=== PATIENT | female | born 1985 | race Caucasian/White ===

== ENCOUNTER → 2017-12-07 09:32 | Outpatient (CLI) | payer OTHER, MEDICAID, SELFPAY ==
[2017-12-07 13:00] LABS: Free T4, Direct Thyroxine 1.25 ng/dL (0.78-2.19)
[2017-12-07 13:14] LABS: Thyroid Stimulating Hormone < 0.02 uIU/mL (0.47-4.68)
[2017-12-08 15:38] LABS: Thyroglobulin Level 0.1 ng/mL (2.8-40.9); Thyroid Antibodies 1 IU/mL (< 2)
== END ==
PROVIDERS: Family Provider Family Medicine; PCP Family Medicine; Visit Provider Nurse Practitioner
DX: E89.0 Postprocedural hypothyroidism (principal); C73 Malignant neoplasm of thyroid gland
CPT/HCPCS: 84432; 84439; 84443

== ENCOUNTER 2018-01-16 13:45 | Outpatient (RCR) | payer OTHER, MEDICAID, SELFPAY ==
--- NOTE | 2017-10-27 16:18 | PT.OTN ---
Current Diagnoses Chronic pain syndrome (10/27/17) Pain in left shoulder (10/27/17) Pain in right hip (10/27/17) Pain in left hip (10/27/17) Pain in right knee (10/27/17) Radiculopathy, cervical region (10/27/17) Cervicalgia (10/27/17) Dorsalgia, unspecified (10/27/17) Physical Therapy Treatment Note PT-OP-A Visit Information Start: 10/27/17 09:34 Freq: Status: Active Protocol: Document 10/27/17 16:10 SAK (Rec: 10/27/17 16:17 [facility] [id number]) Out-Patient Physical Therapy Visit Information Visit Information Visit Type Treatment Note Visit Start Time 15:15 Visit Stop Time 16:15 Total Visit Minutes 60 Visit Number 16 Number of ERP CONSULTANT Visits 0 Evaluation Information Evaluation Date 06/30/17 PT-OP-C Subjective Start: 10/27/17 09:34 Freq: Status: Active Protocol: Document 10/27/17 15:17 SAK (Rec: 10/27/17 15:19 [facility] [id number]) OP-PT Subjective Patient Comments Patient Comments Been able to walk, feeling some better. Headaches not as bad. PT-OP-Q Treatments Start: 10/27/17 09:34 Freq: Status: Active Protocol: Document 10/27/17 15:19 SAK (Rec: 10/27/17 16:07 [facility] [id number]) Cardio Equipment Recumbent Stepper (Sci-Fit) Duration (Minutes) 10 Resistance 1 Seat Position 7 Therapeutic Exercises Supine Exercises 8 Supine Exercise Name bridge Reps/Minutes 5x 7 Supine Exercise Name LTR Reps/Minutes 10x 6 Supine Exercise Name Hamstring stretch Reps/Minutes 2 5 Supine Exercise Name glut set Reps/Minutes 10x 4 Supine Exercise Name full body stretch, lateral trunk stretch 3 Supine Exercise Name hip flex stretch Reps/Minutes 3 min 2 Supine Exercise Name Hip ad with ball squeeze Reps/Minutes 10x 1 Supine Exercise Name stabilization march Reps/Minutes 10x Standing Exercises 2 Standing Exercise Name sidestepping Reps/Minutes 2 min 1 Standing Exercise Name Theraband ex: rows, sh ext Side bilateral Equipment Used L2 TB Reps/Minutes 10 reps ea Manual Therapy Treatment Soft Tissue Mobilization 1 Body Location paraspinals cervical and thoracic Mobilization Type Strumming Body Position Prone Self-Care/Home Management Treatment Education Other Education Importance of HEP for self- care PT-OP-T Assessment and Plan Start: 10/27/17 09:34 Freq: Status: Active Protocol: Document 10/27/17 16:10 THOMAS (Rec: 10/27/17 16:17 [facility] [id number]) Physical Therapy Assessment Assessment Summary Assessment Patient activity level has increased some recently, but patient reports has not lost weight. Poor compliance to HEP due to c/o too busy caring for infant daughter and has not started online education. Has had CT for cervical spine approved, waiting for scheduling for CT and appointment with neurosurgeon. Indicates understanding of need for HEP consistency for self-care, symptom management, but poor follow-through. Physical Therapy Plan Frequency and Duration Frequency of Treatment 1x/Week Duration of Treatment 6 wks Plan of Care Start Date 10/04/17 Plan of Care End Date 11/14/17 Next Visit Focus/Plan Next Visit Plan Progress strengthening, postural and body mechanics, core stabilization as tolerated.
--- NOTE | 2018-01-16 14:30 | PT.OTN ---
Current Diagnoses Chronic pain syndrome (01/16/18) Pain in left shoulder (01/16/18) Pain in right hip (01/16/18) Pain in left hip (01/16/18) Pain in right knee (01/16/18) Radiculopathy, cervical region (01/16/18) Cervicalgia (01/16/18) Dorsalgia, unspecified (01/16/18) Physical Therapy Treatment Note PT-OP-A Visit Information Start: 10/27/17 09:34 Freq: Status: Active Protocol: Document 10/27/17 16:10 SAK (Rec: 10/27/17 16:17 [facility] [id number]) Out-Patient Physical Therapy Visit Information Visit Information Visit Type Treatment Note Visit Start Time 15:15 Visit Stop Time 16:15 Total Visit Minutes 60 Visit Number 16 Number of PROOF TECHNICIAN HELPER Visits 0 Evaluation Information Evaluation Date 06/30/17 PT-OP-C Subjective Start: 10/27/17 09:34 Freq: Status: Active Protocol: Document 10/27/17 15:17 SAK (Rec: 10/27/17 15:19 [facility] [id number]) OP-PT Subjective Patient Comments Patient Comments Been able to walk, feeling some better. Headaches not as bad. PT-OP-Q Treatments Start: 10/27/17 09:34 Freq: Status: Active Protocol: Document 10/27/17 15:19 [facility] (Rec: 10/27/17 16:07 [facility] [id number]) Cardio Equipment Recumbent Stepper (Sci-Fit) Duration (Minutes) 10 Resistance 1 Seat Position 7 Therapeutic Exercises Supine Exercises 8 Supine Exercise Name bridge Reps/Minutes 5x 7 Supine Exercise Name LTR Reps/Minutes 10x 6 Supine Exercise Name Hamstring stretch Reps/Minutes 2 5 Supine Exercise Name glut set Reps/Minutes 10x 4 Supine Exercise Name full body stretch, lateral trunk stretch 3 Supine Exercise Name hip flex stretch Reps/Minutes 3 min 2 Supine Exercise Name Hip ad with ball squeeze Reps/Minutes 10x 1 Supine Exercise Name stabilization march Reps/Minutes 10x Standing Exercises 2 Standing Exercise Name sidestepping Reps/Minutes 2 min 1 Standing Exercise Name Theraband ex: rows, sh ext Side bilateral Equipment Used L2 TB Reps/Minutes 10 reps ea Manual Therapy Treatment Soft Tissue Mobilization 1 Body Location paraspinals cervical and thoracic Mobilization Type Strumming Body Position Prone Self-Care/Home Management Treatment Education Other Education Importance of HEP for self- care PT-OP-S Aquatic Treatment Start: 10/27/17 09:34 Freq: Status: Active Protocol: Document 01/16/18 14:30 TMS (Rec: 01/16/18 16:47 TMS [id number]) Aquatics Treatment Pool Entry/Exit Pool Entry/Exit Method Stairs Assistance Standby Assistance Water Walking Sideways Water Level Chest Level Forwards Water Level Chest Level Lower Extremity Exercises 4 Details Hip AB Body Position Standing Water Level Chest Level Reps/Duration x 10 3 Details Hip flex/ext Body Position Standing Water Level Chest Level Reps/Duration x 10 2 Details Squats Body Position Standing Water Level Chest Level Reps/Duration x 10 1 Details Leoncio/toe raises Body Position Standing Water Level Chest Level Reps/Duration x 10 Upper Extremity Exercises 2 Details Shoulder horiz AB/AD Body Position Standing Water Level Neck Level 1 Details Shoulder circles Body Position Standing Water Level Neck Level [place] Activities [place] Activities Bicycle Cross Country Equipment Belt Duration 15 minutes Comments Cross country without arm movements. PT-OP-T Assessment and Plan Start: 10/27/17 09:34 Freq: Status: Active Protocol: Document 10/27/17 16:10 SAK (Rec: 10/27/17 16:17 SAK [id number]) Physical Therapy Assessment Assessment Summary Assessment Patient activity level has increased some recently, but patient reports has not lost weight. Poor compliance to HEP due to c/o too busy caring for daughter and has not started online education. Has had CT for cervical spine approved, waiting for scheduling for CT and appointment with neurosurgeon. Indicates understanding of need for HEP consistency for self-care, symptom management, but poor follow-through. Physical Therapy Plan Frequency and Duration Frequency of Treatment 1x/Week Duration of Treatment 6 wks Plan of Care Start Date 10/04/17 Plan of Care End Date 11/14/17 Next Visit Focus/Plan Next Visit Plan Progress strengthening, postural and body mechanics, core stabilization as tolerated.
--- NOTE | 2018-01-17 14:45 | PT.OTRE ---
Current Diagnoses Chronic pain syndrome (01/16/18) Pain in left shoulder (01/16/18) Pain in right hip (01/16/18) Pain in left hip (01/16/18) Pain in right knee (01/16/18) Radiculopathy, cervical region (01/16/18) Cervicalgia (01/16/18) Dorsalgia, unspecified (01/16/18) Provider Visit Care Team Role Provider Type Dane Marley MD Attending Provider Physician Family Provider Primary Care Provider Specialty: Family Practice Address: [address] [place] [address], [facility] Email: Physical Therapy Re-Evaluation PT-OP-A Visit Information Start: 10/27/17 09:34 Freq: Status: Active Protocol: Document 10/27/17 16:10 [facility] (Rec: 10/27/17 16:17 SAK [id number]) Out-Patient Physical Therapy Visit Information Visit Information Visit Type Treatment Note Visit Start Time 15:15 Visit Stop Time 16:15 Total Visit Minutes 60 Visit Number 16 Number of GRAIN ELEVATOR MAN Visits 0 Evaluation Information Evaluation Date 06/30/17 PT-OP-C Subjective Start: 10/27/17 09:34 Freq: Status: Active Protocol: Document 01/16/18 14:30 SAK (Rec: 01/17/18 14:45 SAK [id number]) OP-PT Subjective Patient Comments Patient Comments Patient reports pain is very variable, increasing with increasing activity. States increased pain today after playing on the bed with her 13 month old. Poor compliance to HEP due to schedule; taking care of daughter and has started back to school. Increased pain since last seen in PT 10/27/17 due to her schedule, aquatic PT schedule with therapist illness and vacation. Patient Questionnaires Neck Disability Index NDI Score 60 Neck Disability Index Impairment 60 to 79% Impaired (Score 30- 39) Oswestry Low Back Index Oswestry Score 50 Oswestry Impairment 40 to 59% Impaired (Score 40- 59) Quick Dash- Upper Extremity Quick Dash UE Score 39 Quick Dash UE Impairment 60 to 79% Impaired (Score 60- 79) OP-PT Pain Assessment Pain Assessment Grid Paper Pain Assessment Grid Completed Yes Comments Pain Comments Patient c/o pain bilateral cervical spine with radiation up into left side of head, thoracic pain [place], lumbar pain [place]. PT-OP-Q Treatments Start: 10/27/17 09:34 Freq: Status: Active Protocol: Document 10/27/17 15:19 [facility] (Rec: 10/27/17 16:07 [facility] [id number]) Cardio Equipment Recumbent Stepper (Sci-Fit) Duration (Minutes) 10 Resistance 1 Seat Position 7 Therapeutic Exercises Supine Exercises 8 Supine Exercise Name bridge Reps/Minutes 5x 7 Supine Exercise Name LTR Reps/Minutes 10x 6 Supine Exercise Name Hamstring stretch Reps/Minutes 2 5 Supine Exercise Name glut set Reps/Minutes 10x 4 Supine Exercise Name full body stretch, lateral trunk stretch 3 Supine Exercise Name hip flex stretch Reps/Minutes 3 min 2 Supine Exercise Name Hip ad with ball squeeze Reps/Minutes 10x 1 Supine Exercise Name stabilization march Reps/Minutes 10x Standing Exercises 2 Standing Exercise Name sidestepping Reps/Minutes 2 min 1 Standing Exercise Name Theraband ex: rows, sh ext Side bilateral Equipment Used L2 TB Reps/Minutes 10 reps ea Manual Therapy Treatment Soft Tissue Mobilization 1 Body Location paraspinals cervical and thoracic Mobilization Type Strumming Body Position Prone Self-Care/Home Management Treatment Education Other Education Importance of HEP for self- care PT-OP-T Assessment and Plan Start: 10/27/17 09:34 Freq: Status: Active Protocol: Document 01/16/18 14:30 [facility] (Rec: 01/17/18 14:45 [facility] [id number]) Physical Therapy Assessment Goals Four Impairment Activity tolerance; unable to tolerate usual activities without inc pain Production Clerks Supervisor Goal (LTG) Patient to decrease her pain and improve her strength and body mechanics to allow her to perform self-care, household tasks, and care of her daughter with minimal increase in pain LTG Duration 3 months Three Impairment Oswestery disability index score 50% Production Clerks Supervisor Goal (LTG) Decrease score to no greater than 30% LTG Duration 3 months Two Impairment Quickdash UE dysfunction score 63% Production Clerks Supervisor Goal (LTG) Decrease score to no greater than 40% LTG Duration 3 months One Impairment neck disability index score 60 % Production Clerks Supervisor Goal (LTG) Decrease score to no greater than 40% LTG Duration 3 months Assessment Summary Assessment Since last seen in PT patient' s Oswestery score has remained the same but her neck and UE disability scores have worsened. Reports CT was negative for any new injury. Will be seeing a head automatic sawyer soon for alternative pain treatments including prolotherapy. Would benefit from PT if able to attend consistently and able to perform HEP consistently. Physical Therapy Plan Frequency and Duration Frequency of Treatment 2x/wk Duration of Treatment 3 months Plan of Care Start Date 01/16/18 Plan of Care End Date 04/18/18 Therapeutic Interventions Therapeutic Interventions Aquatic Therapy Home Exercise Program Manual Therapy Self-Care/Home Management Therapeutic Activities Therapeutic Exercises Modalities Cold Pack/Ice Massage Electric Stimulation Hot Packs Ultrasound Next Visit Focus/Plan Next Note Type Treatment Note Next Visit Plan Progression of aquatic therapy as tolerated for pain management, strengthening, core stabilization, emphasis on posture and body mechanics with all activities.
--- NOTE | 2018-03-24 09:43 | PT.OPDS ---
Current Diagnoses Chronic pain syndrome (01/16/18) Pain in left shoulder (01/16/18) Pain in right hip (01/16/18) Pain in left hip (01/16/18) Pain in right knee (01/16/18) Radiculopathy, cervical region (01/16/18) Cervicalgia (01/16/18) Dorsalgia, unspecified (01/16/18) Provider Visit Care Team Role Provider Type Dane Marley MD Attending Provider Physician Family Provider Primary Care Provider Specialty: Family Practice Address: [address] [place] [address], [facility] Email: Visit Number Visit Number 16 Discharge Summary PT-OP-C Subjective Start: 10/27/17 09:34 Freq: Status: Active Protocol: Document 01/16/18 14:30 SAK (Rec: 01/17/18 14:45 SAK [id number]) OP-PT Subjective Patient Comments Patient Comments Patient reports pain is very variable, increasing with increasing activity. States increased pain today after playing on the bed with her 13 month old. Poor compliance to HEP due to schedule; taking care of daughter and has started back to school. Increased pain since last seen in PT 10/27/17 due to her schedule, aquatic PT schedule with therapist illness and vacation. Patient Questionnaires Neck Disability Index NDI Score 60 Neck Disability Index Impairment 60 to 79% Impaired (Score 30- 39) Oswestry Low Back Index Oswestry Score 50 Oswestry Impairment 40 to 59% Impaired (Score 40- 59) Quick Dash- Upper Extremity Quick Dash UE Score 39 Quick Dash UE Impairment 60 to 79% Impaired (Score 60- 79) OP-PT Pain Assessment Pain Assessment Grid Paper Pain Assessment Grid Completed Yes Comments Pain Comments Patient c/o pain bilateral cervical spine with radiation up into left side of head, thoracic pain [place], lumbar pain [place]. PT-OP-T Assessment and Plan Start: 10/27/17 09:34 Freq: Status: Active Protocol: Document 03/24/18 09:42 SAK (Rec: 03/24/18 09:43 SAK [id number]) Physical Therapy Plan Discharge Physical Therapy Discharge Reasons No Longer Attending PT Discharge Comments Patient has not been seen for PT in 2 months, has started school and is unable to attend PT consistently at this time. Will be discharged. Please see last PT note which was a re-evaluation for discharge status.
== END 2018-03-30 15:23 ==
LOC: PHYS 13:45
PROVIDERS: Family Provider Family Medicine; PCP Family Medicine; Visit Provider Family Medicine
DX: M54.9 Dorsalgia, unspecified (principal); M25.551 Pain in right hip; M25.552 Pain in left hip; M25.561 Pain in right knee; M54.2 Cervicalgia; M54.12 Radiculopathy, cervical region; M25.512 Pain in left shoulder; G89.4 Chronic pain syndrome
CPT/HCPCS: 97010; 97110; 97113; 97140

== ENCOUNTER 2022-01-31 17:05 | Emergency (ER) | payer OTHER, MEDICAID, SELFPAY ==
[2022-01-31 17:15] VITALS: BP 121/68; PULSE 83; RESP 20; TEMP 36.6; O2SAT 96; BMI 27.0
[2022-01-31] MEDS: BACITRACIN OINT 0.9 GM PCKT 2 APPLIC TOP (18:26)
--- NOTE | 2022-01-31 18:34 | ED_ITS ---
HPI - Wound/Laceration <Kana Mendez PA-C - Last Filed: 01/31/22 18:44> General Chief Complaint: Wound/Laceration Stated Complaint: cut index finger left hand Time Seen by Provider: 01/31/22 17:34 Source: patient Mode of arrival: Family Vehicle History of Present Illness HPI narrative: Patient is a 36-year-old female who presents to the emergency room today with complaint of laceration to the left index finger. His patient states this occurred while she was she was cutting a plastic for ice skates for her daughter. States his current on her tetanus vaccination status denies any other concerns and time. Related Data Home Medications Medication Instructions Recorded Confirmed levothyroxine 112 mcg tablet 112 mcg PO QAM #0 tabs 02/16/16 (Synthroid) Previous Rx's Medication Instructions Recorded valacyclovir 1 gram tablet 1,000 mg PO TID #21 tabs 02/16/16 Allergies Allergy/AdvReac Type Severity Reaction Status Date / Time codeine [CODEINE] Allergy Mild HYPOTENTION Verified 01/31/22 17:18 Review of Systems <Kana Mendez PA-C - Last Filed: 01/31/22 18:44> Review of Systems Narrative: R.O.S.: General: No fever, chills or fatigue. Cardiovascular: No chest pain or palpitations Respiratory: No S.O.B. HEENT: No congestion, ear pain, rhinorrhea, sore throat or tinnitus Gastrointestinal: No nausea or vomiting Skin: Cut to left index finger. Neurological: Awake, alert and in not apparent distress. No Headaches, changes in vision or other related neurological concerns. Patient History <Kana Mendez PA-C - Last Filed: 01/31/22 18:44> Social History Smoking Status: Never smoker Smoking Status: Never smoker alcohol intake frequency: 0-2 drinks per day Substance Use Type: does not use Exam <Kana Mendez PA-C - Last Filed: 01/31/22 18:44> Narrative Exam Narrative: Physical Exam: ? General: normal appearance, well developed, well nourished, alert, and awake. Not in acute distress. ? Head: Normocephalic, no lesions. Chest: Lungs CTAB, no rales, rhonchi or wheezes. ?? Heart: RRR, no murmurs, rubs or gallops. Eyes: PERRLA, EOM's full, conjunctivae clear. ? Neuro: Physiological, no localizing findings, CN3-12 intact. ?? Extremities: Warm, well perfused, FROM, no deformities, no edema. ?? Skin: Patient left index finger has a 0.5 cm linear laceration at the dorsal D IP area. The laceration is superficial and does not involve tendon. Patient has good range of motion of left hand and index finger and also has intact sensation to touch with good capillary refill. PSYCHIATRIC: The mood is good, no blunted affect. Speech is clear. Thought pr ocess is linear, thought content is appropriate. The voice is without significant inflection. Initial Vital Signs Initial Vital Signs: Vital Signs Temperature 97.8 F 01/31/22 17:15 Pulse Rate 83 01/31/22 17:15 Respiratory Rate 20 01/31/22 17:15 Blood Pressure 121/68 01/31/22 17:15 Pulse Oximetry 96 01/31/22 17:15 Oxygen Delivery Method 01/31/22 17:15 <Mayra Mcdonough DO - Last Filed: 02/01/22 08:17> Initial Vital Signs Initial Vital Signs: Vital Signs Temperature 97.8 F 01/31/22 17:15 Pulse Rate 83 01/31/22 17:15 Respiratory Rate 20 01/31/22 17:15 Blood Pressure 121/68 01/31/22 17:15 Pulse Oximetry 96 01/31/22 17:15 Oxygen Delivery Method 01/31/22 17:15 Procedures <Kana Mendez PA-C - Last Filed: 01/31/22 18:44> Laceration Repair Laceration 1: Site: hand Size (cm): 0.5 Description: linear Depth: simple, single layer Skin layer closed with: steri-strips (#2 used ) Course <Kana Mendez PA-C - Last Filed: 01/31/22 18:44> Orders Ordered: Discontinued Medications Bacitracin (Bacitracin Oint 0.9 Gm Pckt) 2 applic TOP NOW ONE Stop: 01/31/22 18:12 Last Admin: 01/31/22 18:26 Dose: 2 applic Documented By: RB Neomycin/Polymyxin/Bacitracin (Neomycin/Polymyxin/Bacitra Ud Oint) 2 each TOP NOW ONE Stop: 01/31/22 18:10 Last Admin: 01/31/22 18:50 Dose: 2 each Documented By: EB Vital Signs Vital signs: Vital Signs - 8 hr 01/31/22 17:15 Temperature 97.8 F Pulse Rate 83 Respiratory Rate 20 Blood Pressure 121/68 Pulse Oximetry 96 Oxygen Delivery Method Room Air <Mayra Mcdonough DO - Last Filed: 02/01/22 08:17> Orders Ordered: Discontinued Medications Bacitracin (Bacitracin Oint 0.9 Gm Pckt) 2 applic TOP NOW ONE Stop: 01/31/22 18:12 Last Admin: 01/31/22 18:26 Dose: 2 applic Documented By: RB Neomycin/Polymyxin/Bacitracin (Neomycin/Polymyxin/Bacitra Ud Oint) 2 each TOP NOW ONE Stop: 01/31/22 18:10 Last Admin: 01/31/22 18:50 Dose: 2 each Documented By: EB Vital Signs Vital signs: Vital Signs - 8 hr 01/31/22 17:15 Temperature 97.8 F Pulse Rate 83 Respiratory Rate 20 Blood Pressure 121/68 Pulse Oximetry 96 Oxygen Delivery Method Room Air MDM - Wound/Laceration <Kana Mendez PA-C - Last Filed: 01/31/22 18:44> MDM Narrative Medical decision making narrative: Patient is a 36-year-old female whose mother's room today with complaint of laceration to the left index finger. Physical exam revealed a 0.5 cm laceration to the distal phalangeal joint of the left dorsal hand. This provider used a finger splint and applied 2 Steri-Strips to secure a closed area. Dressing was applied with bacitracin antibiotic ointment. Patient was also instructed on car e and given supplies to change the dressing at a later date. Provider also discussed infection related concerns and advised patient to return to the emergency room should any emergent concerns arise. The patient agrees with plan Discharge Plan Departure Patient Disposition: Home Clinical Impression: Finger laceration Instructions: DI for Laceration Repair -- Finger Activity Restrictions/Additional Instructions: *You have been diagnosed with [finger laceration.] Suggest you apply the anti biotic ointment and change dressings as needed. I also suggest to the area dry and clean from any activity which would involve bending the finger. Please return to the emergency room should any emergent concerns arise. *What to do: *Please continue to take your regular medications as directed. [ ] New medication prescriptions sent to your pharmacy: [ ] [ ] New medication written as a paper prescription [x ] New medications given *Please follow up with your primary care provider in 2-3 days, call for an appointment. Let them know you were seen in the Emergency Department and that we ask that you be seen in follow up. We will electronically transmit a record of today's note if your PCP is in our system *If you do not have a primary care provider please contact the [facility] Resource line at [phone]. They will ask some questions about your medical history and help get you set up with a doctor in the community. *Return to Emergency Department if you should have any new, worsening or concerning symptoms, such as [fever greater than 101 F, shaking chills, worsening pain, persistent vomiting or other bothersome symptoms] Prescriptions: No Action levothyroxine [Synthroid] 112 MCG tablet 112 mcg PO QAM Qty: 0 valacyclovir 1,000 MG tablet 1,000 mg PO TID Qty: 21 0RF Referrals: Dane Marley MD [Primary Care Provider] - Visit Report Forms: Patient Portal/API <Mayra Mcdonough DO - Last Filed: 02/01/22 08:17> Cosign ED Attending Yuly Attestation: I was immediately available in the department for consultation. Documentation has been reviewed. I agree with assessment and plan.
[2022-01-31] MEDS: NEOMYCIN/POLYMYXIN/BACITRA UD OINT 2 EACH TOP (18:50)
== END 2022-01-31 18:50 | disposition home or self-care (01) ==
PROVIDERS: Emergency Provider Physician Assistant; Family Provider Family Medicine; PCP Family Medicine
DX: S61.211A Laceration without foreign body of left index finger without damage to nail, initial encounter (principal); W45.8XXA Other foreign body or object entering through skin, initial encounter
CPT/HCPCS: 99282; 99283

== ENCOUNTER 2022-02-07 23:00 | Emergency (ER) | payer OTHER, MEDICAID, SELFPAY ==
[2022-02-07 23:08] VITALS: PULSE 63; RESP 24; TEMP 36.8; O2SAT 100
--- NOTE | 2022-02-08 03:39 | ED_ITS ---
HPI - Wound/Laceration General Chief Complaint: Wound/Laceration Stated Complaint: CUT LEFT FINGER Time Seen by Provider: 02/08/22 03:39 Source: patient Mode of arrival: Ambulatory History of Present Illness HPI narrative: 36-year-old woman with a history of hypothyroidism cut her left index finger over the D IP joint last week. Was seen in the emergency department repaired with Steri-Strips and skin glue. It was healing nicely but she re-injured it today by catching wound on the edge of an open door. She is concerned that it has reopened and needs additional attention. Related Data Home Medications Medication Instructions Recorded Confirmed levothyroxine 112 mcg tablet 112 mcg PO QAM #0 tabs 02/16/16 (Synthroid) Previous Rx's Medication Instructions Recorded valacyclovir 1 gram tablet 1,000 mg PO TID #21 tabs 02/16/16 Allergies Allergy/AdvReac Type Severity Reaction Status Date / Time codeine [CODEINE] Allergy Mild HYPOTENTION Verified 01/31/22 17:18 Review of Systems Review of Systems Narrative: No fevers, finger swelling, discharge Patient History Social History Smoking Status: Never smoker Smoking Status: Never smoker alcohol intake frequency: 0-2 drinks per day Substance Use Type: does not use Exam Initial Vital Signs Initial Vital Signs: Vital Signs Temperature 98.2 F 02/07/22 23:08 Pulse Rate 63 02/07/22 23:08 Respiratory Rate 24 02/07/22 23:08 Pulse Oximetry 100 02/07/22 23:08 Oxygen Delivery Method 02/07/22 23:08 General: Alert appropriate in no acute distress Respiratory: Able to speak in full sentences, no obvious respiratory distress Skin: No obvious rashes, warm and dry Neurologic: Grossly intact no obvious asymmetries or abnormalities Psych: appropriate insight and affect, cooperative Extremity: 1 cm partially healed laceration over the PIP joint with the edges minor early disrupted. Skin glue was applied. She does have full range of motion of the joint. There is no inflammation. The wound appears to be otherwise healing nicely Course Vital Signs Vital signs: Vital Signs - 8 hr 02/07/22 23:08 Temperature 98.2 F Pulse Rate 63 Respiratory Rate 24 Pulse Oximetry 100 Oxygen Delivery Method Room Air MDM - Wound/Laceration MDM Narrative Medical decision making narrative: 36-year-old woman with minor laceration over the index finger D IP joint. Was healing nicely did not have a Band-Aid on it this evening cottage on the edge of a door is concerned that the wound edges have slightly. Reassurance is given. Skin glue was applied another splint is given for comfort and she is safe for home discharge Discharge Plan Departure Patient Disposition: Home Clinical Impression: Finger laceration Activity Restrictions/Additional Instructions: Thank you for coming in today The wound actually looks like it is healing nicely. I know it is a bit disconcerting when it seems like it reopens. There is no evidence of infection. I have used skin glue to close the skin edges and given you a new splint. If you notice increasing pain, redness, discharge you do need to be seen and re- evaluated. It was nice to meet you tonight, good luck with this next semester of school. Prescriptions: No Action levothyroxine [Synthroid] 112 MCG tablet 112 mcg PO QAM Qty: 0 valacyclovir 1,000 MG tablet 1,000 mg PO TID Qty: 21 0RF Referrals: Dane Marley MD [Primary Care Provider] -
== END 2022-02-08 03:53 | disposition home or self-care (01) ==
PROVIDERS: Emergency Provider Emergency Medicine; Family Provider Family Medicine; PCP Family Medicine
DX: S61.211A Laceration without foreign body of left index finger without damage to nail, initial encounter (principal)
CPT/HCPCS: 99281

== ENCOUNTER 2022-02-14 17:03 | Emergency (ER) | payer OTHER, MEDICAID, SELFPAY ==
[2022-02-14 17:42] VITALS: BP 122/72; PULSE 77; RESP 20; TEMP 36.4; O2SAT 98; BMI 26.6
--- NOTE | 2022-02-14 17:48 | DI.RAD.S_ITS ---
PROCEDURE: XR ANKLE RT MIN 3V INDICATIONS: fell, twisted ankle, cannot bear weight TECHNIQUE: 3 views of the ankle were acquired. COMPARISON: [facility], , ANKLE 3 VIEWS LEFT, 02/24/2012, 10:02. FINDINGS: Bones: No fractures or dislocations. Ankle mortise is normally aligned. No suspicious bony lesions. Soft tissues: No tibiotalar joint effusion. Achilles tendon appears normal. IMPRESSION: No acute fracture. No osseous lesion. If symptoms and/or clinical suspicion for pathology persist, further assessment with repeat, or advanced imaging (e.g., CT, MRI, or bone scan) may be helpful for further assessment. Dictated by: Sangita Armijo M.D. on 02/14/2022 at 18:04 Approved by: Sangita Armijo M.D. on 02/14/2022 at 18:04
--- NOTE | 2022-02-14 19:54 | ED_ITS ---
HPI - Extremity Injury (Lower) General Chief Complaint: Extremity Injury, Lower Stated Complaint: Thinks sprained right foot Time Seen by Provider: 02/14/22 19:54 Source: patient Mode of arrival: Wheelchair History of Present Illness HPI Narrative: 36-year-old female nonsmoker with noncontributory medical history presents for evaluation of her right foot. She states that she was walking at a ground level and stepped awkwardly and felt pain in her right foot and ankle. She denies any hip, knee involvement. She denies any numbness, tingling or weakness. She has pain with ambulation and improvement with rest. She is otherwise well and free of complaint Related Data Home Medications Medication Instructions Recorded Confirmed levothyroxine 112 mcg tablet 112 mcg PO QAM #0 tabs 02/16/16 (Synthroid) Previous Rx's Medication Instructions Recorded valacyclovir 1 gram tablet 1,000 mg PO TID #21 tabs 02/16/16 Allergies Allergy/AdvReac Type Severity Reaction Status Date / Time codeine [CODEINE] Allergy Mild HYPOTENTION Verified 02/14/22 17:46 Review of Systems Review of Systems Narrative: GENERAL: Denies chills, fatigue, malaise, fever, sweats. HEENT: Denies sinus pain, ear pain, sore throat, difficulty swallowing, dizziness. RESPIRATORY: Denies dyspnea, cough, wheezing, hemoptysis, sputum. CARDIOVASCULAR: Denies chest pain, palpitations, orthopnea, edema, GASTROINTESTINAL: Denies nausea, vomiting, abdominal pain, diarrhea, constipation, melena. : Denies dysuria, frequency, incontinence, hematuria, urinary retention. MUSCULOSKELETAL: See HPI SKIN: Denies rash, skin lesions, or other NEUROLOGIC: Denies weakness, headache, numbness, change in speech, confusion, seizures, incoordination. PSYCHIATRIC: No concerning psychosocial issues. 12 point review of systems is negative except for those stated above Patient History Social History Smoking Status: Never smoker Smoking Status: Never smoker alcohol intake frequency: 0-2 drinks per day Substance Use Type: does not use Exam Narrative Exam Narrative: GEN: AOx3 and in mild distress EYES: Pupils are equal, round, and reactive to light and accommodation. Extraoccular muscles are intact bilaterally. There is no subconjunctival hemorrhage or exudate. CHEST: Lungs are clear to auscultation bilaterally and free of wheezes, rales, or rhonchi. Heart rate is regular rhythm, there are no murmurs, clicks, rubs, or gallops. There is no chest wall tenderness. ABD: Abdomen is soft and nontender. There is no guarding or rebound. Bowel sounds are normal in all 4 quadrants. There is no mass or organomegaly. EXT: Right ankle with full but painful range of motion, some swelling posterior to the lateral malleolus, negative squeeze test, no ligamentous laxity. This is closed, isolated and neurovascularly intact. No pain on palpation or range of motion of knee SKIN: Warm, pink, and dry. No erythema or rash Initial Vital Signs Initial Vital Signs: Vital Signs Temperature 97.6 F 02/14/22 17:42 Pulse Rate 77 02/14/22 17:42 Respiratory Rate 20 02/14/22 17:42 Blood Pressure 122/72 02/14/22 17:42 Pulse Oximetry 98 02/14/22 17:42 Oxygen Delivery Method 02/14/22 17:42 Procedures Orthopedic Splinting/Casting Injury #1: Side: right Lower Extremity Injury Location: ankle Lower Extremity Immobilizer: AirCast Post splinting neuro exam: intact Post splinting vascular exam: intact Placed by: Nursing Course Orders Ordered: ED Orders 02/14/22 17:48 XR ankle RT min 3V Stat Vital Signs Vital signs: Vital Signs - 8 hr 02/14/22 17:42 Temperature 97.6 F Pulse Rate 77 Respiratory Rate 20 Blood Pressure 122/72 Pulse Oximetry 98 Oxygen Delivery Method Room Air MDM - Extremity Injury (Lower) Imaging Data Extremity x-ray #1: Radiologist's Impression: Jennyfer Cortez??36??F??1985 ? Allergy/Adv: codeine Close Ankle X-Ray (Signed) Sangita Armijo - 02/14/22 Launch?[address] [address] XRay Report Signed Patient: Jennyfer Cortez MR#: [id number] : 1985 Acct:[id number] Age/Sex: 36 / F Date of Service: 02/14/22 Loc: ED Accession Number: [id number] ?? Procedure: XR ankle RT min 3V Ordering Provider: Crystal Cabrera D.O. PROCEDURE:? XR ANKLE RT MIN 3V ? INDICATIONS:? fell, twisted ankle, cannot bear weight ? TECHNIQUE:? 3 views of the ankle were acquired.? ? COMPARISON:? [facility], , ANKLE 3 VIEWS LEFT, 02/24/2012, 10:02. ? FINDINGS:? ? Bones:? No fractures or dislocations.? Ankle mortise is normally aligned.? No suspicious bony lesions.? ? Soft tissues:? No tibiotalar joint effusion.? Achilles tendon appears normal.? ? ? IMPRESSION:? No acute fracture. No osseous lesion. If symptoms and/or clinical suspicion for pathology persist, further assessment with repeat, or advanced imaging (e.g., CT, MRI, or bone scan) may be helpful for further assessment. ? Dictated by: Sangita Armijo M.D. on 02/14/2022 at 18:04 ? ? Approved by: Sangita Armijo M.D. on 02/14/2022 at 18:04 ? Discharge Plan Departure Patient Disposition: Home Clinical Impression: Ankle sprain Instructions: DI for Ankle Sprain Activity Restrictions/Additional Instructions: *You have been diagnosed with [right ankle sprain] *What to do: *Please continue to take your regular medications as directed. [ ] New medication prescriptions sent to your pharmacy: [ ] [ ] New medication written as a paper prescription [ x] No new medications given *Please follow up with your primary care provider in 2-3 days, call for an appointment. Let them know you were seen in the Emergency Department and that we ask that you be seen in follow up. We will electronically transmit a record of today's note if your PCP is in our system *Return to Emergency Department if you should have any new, worsening or concerning symptoms, such as [fever greater than 101 F, shaking chills, worsening pain, persistent vomiting or other bothersome symptoms] Prescriptions: No Action levothyroxine [Synthroid] 112 MCG tablet 112 mcg PO QAM Qty: 0 valacyclovir 1,000 MG tablet 1,000 mg PO TID Qty: 21 0RF Referrals: Dane Marley MD [Primary Care Provider] - Visit Report Forms: Patient Portal/API
== END 2022-02-14 20:20 | disposition home or self-care (01) ==
PROVIDERS: Emergency Provider Emergency Medicine; Family Provider Family Medicine; PCP Family Medicine
DX: S93.401A Sprain of unspecified ligament of right ankle, initial encounter (principal); X50.1XXA Overexertion from prolonged static or awkward postures, initial encounter
CPT/HCPCS: 29540; 73610; 99281; 99283

== ENCOUNTER 2022-12-16 13:04 | Emergency (ER) | payer OTHER, MEDICAID, SELFPAY ==
[2022-12-16 13:22] VITALS: BP 167/105; PULSE 68; RESP 16; TEMP 37.1; O2SAT 97; BMI 28.7
--- NOTE | 2022-12-16 13:29 | PC.NURSE ---
Pt had sutures removed yesteray from a lipoma removal. She stated that they removed the sutures a little early and she is concerned that the wound is open. Wound does not appear to be infected,no drainage noted.
--- NOTE | 2022-12-16 14:15 | ED.SKABFB ---
HPI - Skin/Abscess/Foreign Bdy General Chief complaint: Skin/Abscess/Foreign Body Stated complaint: stiches removed T-1 reopen Time Seen by Provider: 12/16/22 14:15 Source: patient Mode of arrival: Ambulatory Limitations: no limitations History of Present Illness HPI narrative: Patient is a healthy 79-year-old female history of hypothyroid secondary to thyroid cancer presenting today with left heel wound. She reports that she would a lipoma removed by Dermatology a couple weeks ago she had sutures removed yesterday and last night she felt some burning. It has opened a little bit. She is not had any fever or chills. sHe is wondering if it needs Steri-Strips and needs to be reclosed. Related Data Home Medications Medication Instructions Recorded Confirmed levothyroxine 112 mcg tablet 112 mcg PO QAM #0 tabs 02/16/16 (Synthroid) Previous Rx's Medication Instructions Recorded valacyclovir 1 gram tablet 1,000 mg PO TID #21 tabs 02/16/16 Allergies Allergy/AdvReac Type Severity Reaction Status Date / Time codeine [CODEINE] Allergy Mild HYPOTENTION Verified 12/16/22 13:25 Patient History Social History Smoking Status: Never smoker Smoking Status: Never smoker alcohol intake frequency: 0-2 drinks per day Substance Use Type: does not use Exam Initial Vital Signs Initial Vital Signs: Vital Signs Temperature 98.7 F 12/16/22 13:22 Pulse Rate 68 12/16/22 13:22 Respiratory Rate 16 12/16/22 13:22 Blood Pressure 167/105 H 12/16/22 13:22 Pulse Oximetry 97 12/16/22 13:22 Oxygen Delivery Method Room Air 12/16/22 13:22 GENERAL: Well-appearing, well-nourished and in no acute distress. CARDIOVASCULAR: peripheral pulses in tact, cap refill <2 sec RESPIRATORY: No respiratory distress, speaks in full sentences without difficulty EXTREMITIES: Normal range of motion, no clubbing or edema. Neurovascularly intact NEUROLOGICAL: Cranial nerves II through XII grossly intact. Normal gait and speech. SKIN: 2 cm incision left medial heel good skin approximation but unable to close completely no surrounding erythema Course Vital Signs Vital signs: Vital Signs - 8 hr 12/16/22 13:22 Temperature 98.7 F Pulse Rate 68 Respiratory Rate 16 Blood Pressure 167/105 H Pulse Oximetry 97 Oxygen Delivery Method Room Air MDM - Skin/Abscess/Foreign Bdy MDM Narrative Medical decision making narrative: At this time incision needs to just close. Steri-Strips do not provide any extra tension or closure. Recommend supportive care only. No evidence of infection. Discharge Plan Departure Patient Disposition: Home Clinical Impression: Delayed wound healing Instructions: DI for Wound Dehiscence Activity Restrictions/Additional Instructions: *You have been diagnosed with delayed wound healing *What to do: At this time keep area clean and dry with soap and water. Now that sutures have been removed may apply antibiotic ointment 1-2 times daily. I do recommend keeping it open to air for at least part of the day and covered with a Band-Aid to help with pain and irritation as well. *Continue to take medications as directed *Follow up with your primary care provider in 2-3 days or call [phone] *Return to ER if you should have increasing redness swelling pain or any new, worsening or concerning symptoms Prescriptions: No Action levothyroxine [Synthroid] 112 MCG tablet 112 mcg PO QAM Qty: 0 valacyclovir 1,000 MG tablet 1,000 mg PO TID Qty: 21 0RF Referrals: Peter Haas MD [Primary Care Provider] - Stand Alone Forms: Patient Portal/API
== END 2022-12-16 14:27 | disposition home or self-care (01) ==
PROVIDERS: Emergency Provider Emergency Medicine; Family Provider Family Medicine; PCP Family Medicine
DX: T81.31XA Disruption of external operation (surgical) wound, not elsewhere classified, initial encounter (principal)
CPT/HCPCS: 99281

== ENCOUNTER 2024-03-10 10:39 | Emergency (ER) | payer OTHER, MEDICAID, SELFPAY ==
[2024-03-10 10:52] VITALS: BP 139/80; PULSE 68; RESP 16; TEMP 36.8; O2SAT 98; BMI 27.4
--- NOTE | 2024-03-10 11:13 | ED_ITS ---
HPI - Neuro Symptoms/Deficit <Lesia Fenton PA-C - Last Filed: 03/10/24 11:24> General Chief Complaint: Recheck/Abnormal Lab/Rx Stated Complaint: needs med refill Time Seen by Provider: 03/10/24 11:12 Source: patient Mode of arrival: Ambulatory History of Present Illness HPI Narrative: Patient is a pleasant 38-year-old female here requesting a refill of her Synthroid. 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 Patient has a primary care doctor. Patient has been attempting to get a refill of her medications. Patient has been unable to get through her doctor. No symptoms. No other issues. On Anticoagulants: No Related Data Home Medications Medication Instructions Recorded Confirmed levothyroxine 112 mcg tablet 100 mcg PO QAM #0 tabs 02/16/16 03/10/24 (Synthroid) Previous Rx's Medication Instructions Recorded valacyclovir 1 gram tablet 1,000 mg PO TID #21 tabs 02/16/16 levothyroxine 100 mcg tablet 100 mcg PO DAILY #90 tabs 03/10/24 (Synthroid) Allergies Allergy/AdvReac Type Severity Reaction Status Date / Time codeine [CODEINE] Allergy Mild HYPOTENTION Verified 03/10/24 10:47 Review of Systems <Lesia Fenton PA-C - Last Filed: 03/10/24 11:24> Review of Systems Narrative: Negative except as above Hematologic/Lymphatic On Anticoagulants: No Patient History <Lesia Fenton PA-C - Last Filed: 03/10/24 11:24> Social History Smoking Status: Never smoker Smoking Status: Never smoker alcohol intake frequency: 0-2 drinks per day Substance Use Type: does not use Exam <Lesia Fenton PA-C - Last Filed: 03/10/24 11:24> Initial Vital Signs Initial Vital Signs: Vital Signs Temperature 98.3 F 03/10/24 10:52 Pulse Rate 68 03/10/24 10:52 Respiratory Rate 16 03/10/24 10:52 Blood Pressure 139/80 03/10/24 10:52 Pulse Oximetry 98 03/10/24 10:52 Oxygen Delivery Method Room Air 03/10/24 10:52 Const General: cooperative, healthy appearing, comfortable, well developed and well groomed Neuro General: patient alert, patient awake, patient oriented x3, oriented and gait normal <DO Peter De La Garza Last Filed: 03/10/24 12:22> Initial Vital Signs Initial Vital Signs: Vital Signs Temperature 98.3 F 03/10/24 10:52 Pulse Rate 68 03/10/24 10:52 Respiratory Rate 16 03/10/24 10:52 Blood Pressure 139/80 03/10/24 10:52 Pulse Oximetry 98 03/10/24 10:52 Oxygen Delivery Method Room Air 03/10/24 10:52 Course <ASH Hook Last Filed: 03/10/24 11:24> Vital Signs Vital signs: Vital Signs - 8 hr 03/10/24 10:52 Temperature 98.3 F Pulse Rate 68 Respiratory Rate 16 Blood Pressure 139/80 Pulse Oximetry 98 Oxygen Delivery Method Room Air <Dane Mckoy DO - Last Filed: 03/10/24 12:22> Vital Signs Vital signs: Vital Signs - 8 hr 03/10/24 10:52 Temperature 98.3 F Pulse Rate 68 Respiratory Rate 16 Blood Pressure 139/80 Pulse Oximetry 98 Oxygen Delivery Method Room Air MDM - Neuro Symptoms/Deficit <Lesia Fenton PA-C - Last Filed: 03/10/24 11:24> MDM Narrative Medical decision making narrative: 38-year-old female here requesting a refill of her Synthroid. 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 No symptoms. Unable to get hold of them. Currently the pharmacy says she has no refills. Has been out of her medications for 4 days. Refill of her Synthroid. Patient states that her dose currently has 100 mcg daily. Medications sent to her pharmacy of choice. Differential diagnosis med refill. Discharge Plan Departure Patient Disposition: Home Clinical Impression: Encounter for medication refill Prescriptions: New levothyroxine [Synthroid] 100 mcg tablet 100 mcg PO DAILY Qty: 90 0RF No Action levothyroxine [Synthroid] 112 MCG tablet 100 mcg PO QAM Qty: 0 valacyclovir 1,000 MG tablet 1,000 mg PO TID Qty: 21 0RF Referrals: Peter Haas MD [Non-Staff] - Stand Alone Forms: Patient Portal/API ED Sign-out <DO Peter De La Garza Filed: 03/10/24 12:22> Cosign ED Attending Cosignature Attestation: Dr Mckoy Co-Sign Statement: I was available for consultation during this patient's emergency department visit. This chart is signed by myself for admin istrative purposes only. I did not have direct contact with this patient during this visit. They were seen independently by the APC.
== END 2024-03-10 11:30 | disposition home or self-care (01) ==
PROVIDERS: Emergency Provider Physician Assistant; Family Provider Family Medicine; PCP Naturopath
DX: Z76.0 Encounter for issue of repeat prescription (principal)
CPT/HCPCS: 99281